=== PATIENT | female | born 1970 | race Two or more races ===

== ENCOUNTER 2021-08-09 15:43 | Emergency (ER) | payer MEDICAID ==
[~2021-08-09] VITALS: Ht 165.1 cm; Wt 63.6 kg
[2021-08-09 15:44] VITALS: BP 148/68
== END 2021-08-09 16:52 | disposition home or self-care (01) ==
LOC: EMS 15:46
DX: S89.91XA Unspecified injury of right lower leg, initial encounter (principal); W19.XXXA Unspecified fall, initial encounter; Y93.89 Activity, other specified; Y92.89 Other specified places as the place of occurrence of the external cause; Y99.8 Other external cause status
CPT/HCPCS: 99283